=== PATIENT | female | born 1995 | race Asian ===

== ENCOUNTER 2022-03-27 13:04 | Emergency (ER) | payer OTHER ==
[~2022-03-27] VITALS: Ht 152.4 cm; Wt 51.4 kg
[2022-03-27 13:05] VITALS: BP 128/83
[2022-03-27] MEDS ORDERED: FERR325T3 PO (13:13)
[2022-03-27] MEDS ORDERED: PARO10TA3 PO (13:13)
[2022-03-27] MEDS ORDERED: TRAZ-252 PO (13:13)
== END 2022-03-27 14:21 | disposition home or self-care (01) ==
LOC: M ED 13:04
DX: Z00.00 Encounter for general adult medical examination without abnormal findings (principal)

== ENCOUNTER → 2022-09-24 | Outpatient (CLI) | payer OTHER ==
[~2022-09-24] MED LIST: FERR325T3 PO; PARO10TA3 PO; TRAZ-252 PO
== END ==
LOC: M WHC 13:46
PROVIDERS: ATTEND Nurse Practitioner Primary Care
DX: M84.48XA Pathological fracture, other site, initial encounter for fracture (principal); M85.89 Other specified disorders of bone density and structure, multiple sites

== ENCOUNTER → 2022-10-29 | Outpatient (CLI) | payer OTHER | LOC: M RAD 10:02 | PROVIDERS: ATTEND Physical Medicine & Rehabilitation | DX: M84.48XD Pathological fracture, other site, subsequent encounter for fracture with routine healing (principal); K42.9 Umbilical hernia without obstruction or gangrene; M53.3 Sacrococcygeal disorders, not elsewhere classified ==

== ENCOUNTER 2023-02-07 17:25 | Emergency (ER) | payer OTHER ==
[~2023-02-07] VITALS: Ht 149.9 cm; Wt 54.5 kg
[2023-02-07] MEDS ORDERED: SPIR-10 PO (18:15)
[2023-02-07] MEDS ORDERED: MEDR10TA9 PO (18:15)
[2023-02-07] MEDS ORDERED: METF-414 PO (18:16)
[2023-02-07 19:08] LABS: BASO % 0.4 % (0.0-1.0); EOS # 0.2 10^3/uL (0.0-0.5); EOS % 1.5 % (0.0-3.0); HEMATOCRIT 44.5 % (36.0-47.0); HEMOGLOBIN 13.5 g/dl (12.0-15.5); LYMPH # 2.9 10^3/uL (1.5-5.0); LYMPH % 27.3 % (24.0-44.0); MEAN CORPUSCULAR HEMOGLOBIN 21.9 pg (27.0-33.0); MEAN CORPUSCULAR HGB CONC 30.3 g/dl (32.0-36.5); MEAN CORPUSCULAR VOLUME 72.1 fl (80.0-96.0); MONO # 0.5 10^3/uL (0.0-0.8); MONO % 4.6 % (2.0-8.0); NEUTROPHILS # 6.9 10^3/uL (1.5-8.5); PLATELET COUNT, AUTOMATED 328 10^3/uL (150-450); RED BLOOD COUNT 6.17 10^6/uL (4.00-5.40); WHITE BLOOD COUNT 10.4 10^3/uL (4.0-10.0)
[2023-02-07 19:34] LABS: ALBUMIN 4.2 G/DL (3.2-5.2); BILIRUBIN,DIRECT 0.1 MG/DL (<0.4); BILIRUBIN,TOTAL 0.3 MG/DL (0.3-1.2); TOTAL PROTEIN 7.8 G/DL (5.7-8.2)
[2023-02-08 01:56] LABS: BLOOD UREA NITROGEN 10 MG/DL (9-23); CALCIUM LEVEL 9.3 MG/DL (8.5-10.1); CARBON DIOXIDE LEVEL 25 MMOL/L (20-31); CHLORIDE LEVEL 104 MMOL/L (98-107); CREATININE FOR GFR 0.69 MG/DL (0.55-1.30); GLOMERULAR FILTRATION RATE > 60.0 (>60); GLUCOSE, FASTING 94 MG/DL (60-100); POTASSIUM SERUM 4.1 MMOL/L (3.5-5.1); SODIUM LEVEL 139 MMOL/L (136-145)
[2023-02-08] MEDS ORDERED: METOCLOPRAMIDE INJ 10MG/2ML VIAL IV ONE (02:40)
[2023-02-08] MEDS ORDERED: KETOROLAC 30 MG/ML 1ML VIAL IV ONE (02:40)
[2023-02-08] MEDS ORDERED: NS 1,000 ML IV ONE (02:40)
[2023-02-08] MEDS ORDERED: diphenhydrAMINE 50MG/ML VIAL IV ONE (02:40)
[2023-02-08 04:00] VITALS: BP 106/59
[2023-02-08 04:34] VITALS: TEMP 97.4; O2SAT 99
== END 2023-02-08 04:36 | disposition home or self-care (01) ==
LOC: M ED 17:25
DX: G43.909 Migraine, unspecified, not intractable, without status migrainosus (principal); Z79.899 Other long term (current) drug therapy
CPT/HCPCS: 80048; 80076; 83690; 84702; 85025; 96361; 96374; 96375; 99284; J1200; J1885; J2765

== ENCOUNTER → 2023-07-14 | Outpatient (CLI) | payer OTHER ==
[~2023-07-14] MED LIST changes: +ISOVUE-370 76% 100ML VIAL As Ordered ONE; +MEDR10TA9 PO; +METF-414 PO; +SPIR-10 PO
== END ==
LOC: M RAD 17:09
PROVIDERS: ATTEND Nurse Practitioner Family
DX: R22.2 Localized swelling, mass and lump, trunk (principal)
CPT/HCPCS: 71260; Q9967

== ENCOUNTER → 2023-10-04 | Outpatient (CLI) | payer OTHER ==
[~2023-10-04] MED LIST changes: -ISOVUE-370 76% 100ML VIAL As Ordered ONE
[2023-10-04 15:27] LABS: BASO # 0.1 10^3/uL (0.0-0.2); BASO % 0.7 % (0.0-1.0); EOS # 0.2 10^3/uL (0.0-0.5); EOS % 1.7 % (0.0-3.0); HEMATOCRIT 42.5 % (36.0-47.0); HEMOGLOBIN 13.3 g/dl (12.0-15.5); LYMPH # 3.5 10^3/uL (1.5-5.0); LYMPH % 33.2 % (24.0-44.0); MEAN CORPUSCULAR HEMOGLOBIN 22.3 pg (27.0-33.0); MEAN CORPUSCULAR HGB CONC 31.3 g/dl (32.0-36.5); MEAN CORPUSCULAR VOLUME 71.2 fl (80.0-96.0); MONO # 0.5 10^3/uL (0.0-0.8); MONO % 4.9 % (2.0-8.0); NEUTROPHILS # 6.2 10^3/uL (1.5-8.5); NEUTROPHILS % 59.2 % (36.0-66.0); PLATELET COUNT, AUTOMATED 372 10^3/uL (150-450); RED BLOOD COUNT 5.97 10^6/uL (4.00-5.40); WHITE BLOOD COUNT 10.4 10^3/uL (4.0-10.0)
[2023-10-04 15:59] LABS: IRON (FE) 144 UG/DL (50-170)
[2023-10-04 16:00] LABS: THYROID STIMULATING HORMONE 1.435 uIU/ML (0.55-4.78)
[2023-10-04 16:01] LABS: FOLATE > 24.0 NG/ML (>5.4)
[2023-10-04 16:02] LABS: FERRITIN 427.6 NG/ML (7.3-270.7); FREE T4 1.39 NG/DL (0.89-1.76); VITAMIN B12 LEVEL 525 PG/ML (211-911)
== END ==
LOC: M PLALAB 13:50
PROVIDERS: ATTEND Internal Medicine Hematology
DX: D50.9 Iron deficiency anemia, unspecified (principal)